=== PATIENT | female | born 1975 | race Caucasian/White ===

== ENCOUNTER 2017-09-08 15:13 | Emergency (ER) | payer OTHER ==
[~2017-09-08] VITALS: Ht 160 cm; Wt 199.7 kg
[~2017-09-08 15:13] MED LIST: BUPROPION; BUPROPION XL300 MG PO; HYDROCHLOROTH12.5 M1 PO; HYDROCHLOROTHIA25 MG PO; HYDROCODON-ACE1 EA10 PO; IBUPROFEN600 MG PO; LEVOTHYROXINE; LEVOXYL50 MCG PO; POTASSIUM CHLO10 MEQ PO; REGLAN10 MG PO
[2017-09-08] MEDS ORDERED: SPIRONOLACTONE25 MG PO (15:33)
[2017-09-08] MEDS ORDERED: DYAZIDE 37.5-251 EA PO (15:58)
== END 2017-09-08 16:11 | disposition home or self-care (01) ==
LOC: ED 15:13
DX: R60.0 Localized edema (principal); I10 Essential (primary) hypertension; E03.9 Hypothyroidism, unspecified; F32.9 Major depressive disorder, single episode, unspecified; E66.01 Morbid (severe) obesity due to excess calories; Z79.899 Other long term (current) drug therapy
CPT/HCPCS: 99283

== ENCOUNTER 2018-09-11 15:02 | Emergency (ER) | payer OTHER ==
[~2018-09-11] VITALS: Ht 160 cm; Wt 199.7 kg
[~2018-09-11 15:02] MED LIST changes: +DYAZIDE 37.5-251 EA PO; +SPIRONOLACTONE25 MG PO
[2018-09-11] MEDS ORDERED: NORCO 5-325 TA1 EACH PO (17:56)
== END 2018-09-11 18:00 | disposition home or self-care (01) ==
LOC: ED 15:02
DX: M54.9 Dorsalgia, unspecified (principal); I10 Essential (primary) hypertension; F32.9 Major depressive disorder, single episode, unspecified; Z90.49 Acquired absence of other specified parts of digestive tract; Z79.899 Other long term (current) drug therapy
CPT/HCPCS: 81001; 99283